=== PATIENT | female | born 1980 | race Caucasian/White ===

== ENCOUNTER 2024-04-30 07:59 | Outpatient (AMB) | payer BC, SELFPAY ==
[2024-04-30 08:01] VITALS: BP 138/78; PULSE 81; O2SAT 98; BMI 51.2
--- NOTE | 2024-04-30 08:01 | MHC.OFFVIS ---
Vital Signs 04/30/24 08:01 Height 5 ft 3 in Weight 288 lb 12.889 oz BMI 51.2 BP 138/78 Blood Pressure Location Lt brachial Position Sitting Pulse 81 Pulse Source Pulse Oximeter Pulse Oximetry (%) 98 Oxygen Delivery Method Room Air Intake Visit Reasons: ARTHRALGIA/CM APT Intake Note: Patient is here to follow up on arthralgia in her elbows. Allergies No Known Allergies [No Known Allergies*] Allergy (Unverified 04/30/24 08:04) PFSH Medical History (Updated 04/30/24 @ 08:37 by Chucky Dwyer MD) Arthralgia Surgical History (Updated 04/30/24 @ 08:07 by Zoe Stephens CMA) LAP-BAND surgery status Family History (Updated 04/30/24 @ 08:08 by Zoe Stephens CMA) Father Lung cancer Brother Diabetes Social History (Updated 04/30/24 @ 08:09 by Zoe Stephens CMA) Alcohol intake: never Cigarettes Per Day: 8 Years Smoked: 25 Physical Exam Vital Signs: Last Vital Signs Pulse 81 04/30/24 08:01 BP 138/78 04/30/24 08:01 Pulse Ox 98 04/30/24 08:01 Oxygen Delivery Method Room Air 04/30/24 08:01 BMI result Body Mass Index 51.2 Office Procedures AMB Joint Injection/Aspiration Joint Injection/Aspiration Secondary Site: right tennis elbow Prep: site was prepped using aseptic technique Injected: 20 mg of, Kenalog, with 0.5 mL of and 1% plain lidocaine Procedure: The patient tolerated the procedure well Coding 94869 - Epicondyle Additional procedure code (CPT) needed (Modifier for bilateral procedure needed) AMB Joint Injection/Aspiration Joint Injection/Aspiration Primary Site: left tennis elbow Prep: site was prepped using aseptic technique Injected: 20 mg of, Kenalog, with 0.5 mL of and 1% plain lidocaine Procedure: The patient tolerated the procedure well Coding 12118 - Epicondyle Additional procedure code (CPT) needed (Modifier for bilateral procedure ) Office Meds Kenalog 40 mg/mL suspension for injection Performing Provider: Chucky Dwyer MD Performing Location: [facility] Administered by: Chucky Dwyer MD on 04/30/24 22:26 Dose Route Admin Location Dispensed Lot Number Expiration Date [place] Attending Psychiatrist 20 mg Tendon Sheath Inj. 1 mL AP [id number] [employer] lidocaine (PF) 10 mg/mL (1 %) injection solution Performing Provider: Chucky Dwyer MD Performing Location: [facility] Administered by: Chucky Dwyer MD on 04/30/24 22:26 Dose Route Admin Location Dispensed Lot Number Expiration Date [facility] Attending Psychiatrist 5 mg Infiltration 2 mL [id number] [facility] Kenalog 40 mg/mL suspension for injection Performing Provider: Chucky Dwyer MD Performing Location: [facility] Administered by: Chucky Dwyer MD on 04/30/24 22:29 Dose Route Admin Location Dispensed Lot Number Expiration Date [facility] Attending Psychiatrist 20 mg Tendon Sheath Inj. 1 mL AP [id number] [employer] lidocaine (PF) 10 mg/mL (1 %) injection solution Performing Provider: Chucky Dwyer MD Performing Location: [facility] Administered by: Chucky Dwyer MD on 04/30/24 22:29 Dose Route Admin Location Dispensed Lot Number Expiration Date [facility] Attending Psychiatrist 5 mg Infiltration 2 mL [id number] [facility] Assessment & Plan Assessment & Plan (1) Lateral epicondylitis: Comment: Bilateral R>L. 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 She has received 6 cortisone injections to treat right lateral epicondylitis and 1 cortisone injection to treat left lateral epicondylitis in total. We discussed considering surgery. Patient is fearful of surgery but is willing to read the information that I will provide her. I will treat her current symptoms with cortisone injection. Code(s): M77.10 - Lateral epicondylitis, unspecified elbow Category: Medical Qualifiers: Laterality: bilateral Qualified Code(s): M77.11 - Lateral epicondylitis, right elbow; M77.12 - Lateral epicondylitis, left elbow Plan: Patient received bilateral lateral epicondyle tendon cortisone injections to treat lateral epicondylitis She will ice affected area as needed Information from [facility] on lateral epicondylitis given to patient Letter to excuse patient from were given to patient Patient is requesting note to support her working no more than 7 hour days at work Return to clinic in 3 months Orders: Orders AMB Joint Injection/Aspiration 04/30/24 M77.11 - Lateral epicondylitis, right elbow, M77.12 - Lateral epicondylitis, left elbow AMB Joint Injection/Aspiration 04/30/24 M77.11 - Lateral epicondylitis, right elbow, M77.12 - Lateral epicondylitis, left elbow Coding Level of Care Code Est Pt Level 3 (83904) Complex EM visit Add On G2211 Diagnoses Lateral epicondylitis of both elbows M77.11; M77.12 Laterality: bilateral CPT Codes Coding - Joint 2: 33696 - Epicondyle ([id number]) Coding - Joint 2: 64532 - Epicondyle ([id number])
== END 2024-04-30 08:35 | disposition home or self-care (01) ==
PROVIDERS: PCP Internal Medicine; Visit Provider Internal Medicine Rheumatology
DX: M77.11 Lateral epicondylitis, right elbow (principal); M77.12 Lateral epicondylitis, left elbow
CPT/HCPCS: 20551

== ENCOUNTER → 2024-04-30 07:59 | Outpatient (BNVA) | payer BC, SELFPAY | PROVIDERS: PCP Internal Medicine; Visit Provider Internal Medicine Rheumatology | DX: M77.11 Lateral epicondylitis, right elbow (principal); M77.12 Lateral epicondylitis, left elbow | CPT/HCPCS: 20551; J2003; J3300 ==

== ENCOUNTER 2024-07-30 12:46 | Outpatient (AMB) | payer BC, SELFPAY ==
--- NOTE | 2024-07-30 12:50 | MHC.OFFVIS ---
Vital Signs 07/30/24 12:52 Height 5 ft 3 in Weight 286 lb 2.56 oz BMI 50.7 BP 130/86 Blood Pressure Location Lt brachial Position Sitting Pulse 103 H Pulse Source Pulse Oximeter Pulse Oximetry (%) 100 Oxygen Delivery Method Room Air Intake Visit Reasons: Follow Up 3mo Intake Note: Patient is here to follow up on arthralgia in her elbows.Pt states that she is also here for Bilateral cortisone inj. in her elbows. Allergies No Known Allergies [No Known Allergies*] Allergy (Verified 07/30/24 12:52) HPI HPI Follow Up 3mo: Details: She has had recurrent pain in elbows right worse than left. 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 [facility] Medical History Arthralgia Surgical History LAP-BAND surgery status Family History Father Lung cancer Brother Diabetes Social History Alcohol intake: never Cigarettes Per Day: 8 Years Smoked: 25 Review of Systems Const All systems reviewed & are unremarkable except as noted in HPI and below Physical Exam Vital Signs: Last Vital Signs Pulse 103 H 07/30/24 12:52 BP 130/86 07/30/24 12:52 Pulse Ox 100 07/30/24 12:52 Oxygen Delivery Method Room Air 07/30/24 12:52 BMI result Body Mass Index 50.7 Const Other: General: Comfortable Skin: No lesions seen MSK: Tender to palpate bilateral lateral epicondyles. Pain at right lateral epicondyle with resisted wrist extension. No swelling of soft tissue localized to lateral or medial epicondyle. Normal range of motion of elbows. Office Procedures AMB Joint Injection/Aspiration Coding 22868 - Epicondyle Procedure code (CPT) selection complete AMB Joint Injection/Aspiration Joint Injection/Aspiration Details: Bilateral lateral epicondyles Prep: site was prepped using aseptic technique Injected into each site: 20 mg of, Kenalog, with 0.5 mL of and 1% plain lidocaine Procedure: The patient tolerated the procedure well. Postprocedure protocol was discussed with patient. Coding 11368 - Epicondyle Procedure code (CPT) selection complete Office Meds lidocaine (PF) 10 mg/mL (1 %) injection solution Performing Provider: Chucky Dwyer MD Performing Location: [facility] Administered by: Chucky Dwyer MD on 07/30/24 21:57 Dose Route Admin Location Dispensed Lot Number Expiration Date [facility]NOTE 3] [employer] 5 mg Infiltration 2 mL [id number] [employer] [employer] Kenalog 40 mg/mL suspension for injection Performing Provider: Chucky Dwyer MD Performing Location: [facility] Administered by: Chucky Dwyer MD on 07/30/24 21:57 Dose Route Admin Location Dispensed Lot Number Expiration Date [facility][NOTE 3] [employer] 20 mg Tendon Sheath Inj. 1 mL AP [id number] [employer] lidocaine (PF) 10 mg/mL (1 %) injection solution Performing Provider: Chucky Dwyer MD Performing Location: [facility] Administered by: Chucky Dwyer MD on 07/30/24 21:57 Dose Route Admin Location Dispensed Lot Number Expiration Date [facility][NOTE 3] [employer] 5 mg Infiltration 2 mL [id number] [employer] Kenalog 40 mg/mL suspension for injection Performing Provider: Chucky Dwyer MD Performing Location: [facility] Administered by: Chucky Dwyer MD on 07/30/24 21:57 Dose Route Admin Location Dispensed Lot Number Expiration Date [facility][NOTE 3] [employer] 20 mg Tendon Sheath Inj. 1 mL AP [id number] [employer] Assessment & Plan Assessment & Plan (1) Lateral epicondylitis: Comment: Bilateral R>L. 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 Patient has changed her job in the company with reduced hours and number of clients. History: She has received 7 cortisone injections to treat right lateral epicondylitis and 2 cortisone injection to treat left lateral epicondylitis in total. I discussed considering surgery last visit 04/30/2024. Code(s): M77.10 - Lateral epicondylitis, unspecified elbow Category: Medical Qualifiers: Laterality: bilateral Qualified Code(s): M77.11 - Lateral epicondylitis, right elbow; M77.12 - Lateral epicondylitis, left elbow Plan: Patient received bilateral cortisone injections to for treatment of bilateral lateral epicondylitis Prescription for elbow support bands given to patient for bilateral elbow support bands Return to clinic in 3 months Orders: Orders AMB Joint Injection/Aspiration Today M77.11 - Lateral epicondylitis, right elbow, M77.12 - Lateral epicondylitis, left elbow AMB Joint Injection/Aspiration Today M77.11 - Lateral epicondylitis, right elbow, M77.12 - Lateral epicondylitis, left elbow Medications: New arm brace As directed Dx: lateral epicondylitis Bilateral elbow support bands 2 ea 0RF Coding Level of Care Code Est Pt Level 4 (51849) Complex EM visit Add On G2211 Diagnoses Lateral epicondylitis of both elbows M77.11; M77.12 Laterality: bilateral CPT Codes Coding - Joint 2: 14514 - Epicondyle ([id number]) Coding - Joint 2: 20897 - Epicondyle ([id number]) Time Spent (min) 20
[2024-07-30 12:52] VITALS: BP 130/86; PULSE 103; O2SAT 100; BMI 50.7
--- OUTSIDE RECORDS SUMMARY | 2024-07-30 15:18 | XMS_ITS | Clinical Summary ---
Author Organization [employer] [facility] Address [address] [place] [address] Care Team Providers Care Air Sealing Technician Name Role Phone Alvaro Soria MD Primary Care Provider [phone] Surgical History Surgery Date Site/Laterality Comments LAPAROSCOPIC GASTRIC BANDING 11/20/2009 PROCEDURE: LAP ADJUSTABLE GASTRIC BAND LEG SURGERY 1994 PROCEDURE: HISTORICAL LEG SURGERY; COMMENT: ORIF Tibia fracture Medical History Medical History Date Comments Hypertension DX:Hypertension Anxiety DX:Anxiety ADD (attention deficit disorder) 03/18/2020 DX:ADD (attention deficit disorder) Allergic rhinitis 03/18/2020 DX:Allergic rh initis RENE (obstructive sleep apnea) 03/18/2020 DX :RENE (obstructive sleep apnea) Non-ischemic cardiomyopathy ([facility]/HCC) 03/18/2020 DX:Non-ischemic cardiomyopathy ([facility]); COMMENT: 2007 EF 35-40% CHF (congestive heart failur e) (CMS/HCC) 03/18/2020 DX:CHF (congestive heart francois lure) ([facility]) PCOS (polycystic ovarian syndrome) 03/18/2020 DX:PCOS (polycystic ovarian syndrome) History of bariatric surgery 03/18/2020 DX: History of bariatric surgery; COMMENT: 2009 Lap band Class 3 severe obesity due t o excess calories with body mass index (BMI) of 50.0 to 59.9 in adult (CMS/HCC) 03/18/2020 DX:Class 3 severe o besity due to excess calories with body mass index (BMI) of 50.0 to 59.9 in adult ([facility]) Hypertension DX:Hypertension Family History Medical History Relation Name Comments Other: COVID-19 Brother 1 Diabetes Diabetes Brother 2 Lung cancer Father Hypertension No Known Problems Mother Relation Name Status Comments Brother 1 Brother 2 Father Alive Mother Alive Social History Tobacco Use Types Packs/Day Years Used Date Smoking Tobacco: Every Day Cigarettes Smokeless Tobacco: Never Alcohol Use Standard Drinks/Week Comments Not Currently 0 (1 standard drink = 0.6 oz pur e alcohol) Comments Unknown Sex and Gender Information Value Date Recorded Sex Assigned at Not on file Legal Sex Female 12:53 PM EST Gender Identity Not on file Sexual Orientation Not on file Obstetrics History Last Filed Vital Signs Vital Sign Reading Time Taken Comments Blood Pressure - - Pulse - - Temperature - - Respiratory Rate - - Oxygen Saturation - - Inhaled Oxygen Concentration - - Weight 138 kg (305 lb) 02/21/2023 9:34 AM EDT Height - - Body Mass Index - - Plan of Treatment Health Maintenance Due Date Last Done Comments Breast Cancer Screening 1981 Hepatitis B Vaccines (1 of 3 - 19+ 3-dose series) 01/06/2000 Pneumococcal Vaccine: Pediatrics (0 to 5 Years) and At-Risk Patients (6 to 64 Years) (1 of 2 - PCV) 01/06/2000 Cervical Cancer Screening: P ap Smear 2002 Cholesterol Screening (Lipid Panel) 04/19/2022 Depression Screening 04/19/2022 HIV Screening 04/19/2022 Hepatitis C Screening 04/19/2022 Social Influencers of Health Screening 04/19/2022 Hypertension/CHF/CAD Annual BMP Blood Test 05/04/2022 COVID-19 Vaccine ( - 2023-2 5 season) 2024 Influenza Vaccine (#1) 2024 02/19/2019 DTaP,Tdap,and Td Vaccines (3 - Td or Tdap) 04/15/2029 04/15/2019, 09/03/2007 MMR Vaccines Aged Out 04/23/2010 No longer eligi ble based on patient's age to complete this topic HIB Vaccines Aged Out No longer eligi ble based on patient's age to complete this topic HPV Vaccines Aged Out No longer eligi ble based on patient's age to complete this topic Hepatitis A Vaccines Aged Out No long er eligible based on patient's age to complete this topic IPV Vaccines Aged Out No longer eligi ble based on patient's age to complete this topic Meningococcal ACWY Vaccine Aged Out N o longer eligible based on patient's age to complete this topic Meningococcal B Vacine Aged Out No lo nger eligible based on patient's age to complete this topic RSV Immunization Patients Under 20 months Aged Out No longer eligible b ased on patient's age to complete this topic Varicella Vaccines Aged Out No longer eligible based on patient's age to complete this topic Care Teams Air Sealing Technician Relationship Specialty Start Date End Date Alvaro Soria MD [address] [place] [id number] PCP - General Internal Medicine 10/27/20
--- OUTSIDE RECORDS SUMMARY | 2024-07-30 15:18 | XMS_ITS | Clinical Summary ---
Author Organization [facility] Address [address] [place] [address] Care Team Providers Care Primary School Teacher Name Role Phone Alvaro Soria MD Primary Care Provider [phone] Allergies No known active allergies Medications Medication Sig Dispensed Refills Start Date End Date Status lisinopril (PRINIVIL,ZESTRIL) tablet 20 mgIndications:Hypertensi on Take 20 mg by mouth daily. 0 Active amphetamine-dextroamphet amine (ADDERALL) 10 MG tabletIndications:Attent ion Deficit Hyperactivity Disorder Take 25 mg by mouth daily. 0 Active Social History Tobacco Use Types Packs/Day Years Used Date Smoking Tobacco: Every Day Cigarettes 0.5 Smokeless Tobacco: Never Tobacco Cessation:Ready to Q uit: No; Counseling Given: No Alcohol Use Standard Drinks/Week Comments Not Currently 0 (1 standard drink = 0.6 oz pur e alcohol) Sex and Gender Information Value Date Recorded Sex Assigned at Female 10/27/2020 11:11 AM EDT Gender Identity Female 10/27/2020 11:11 AM EDT Sexual Orientation Straight 10/27/2020 11 :11 AM EDT Job Start Date Occupation Industry Not on file Not on file Not on file Plan of Treatment Health Maintenance Due Date Last Done Comments Hepatitis B Vaccines (1 of 3 - 3-dose series) 1981 Hepatitis C Screening 1981 COVID-19 Vaccine (#1) 1981 Pneumococcal Vaccine (1 of 2 - PCV) 1987 Depression Screening 1993 Preventative Health Evaluation 1999 Cervical Cancer Screening (P ap Smear) 2002 DTap / Tdap / Td (2 - Td or Tdap) 09/02/2017 008 Influenza Vaccine (#1) 2024 02/19/2019 RSV Ped < 20 months Aged Out No longe r eligible based on patient's age to complete this topic Care Teams Primary School Teacher Relationship Specialty Start Date End Date Alvaro Soria MD [address] [place] [id number] PCP - General Internal Medicine 10/27/20
== END 2024-07-30 13:39 | disposition home or self-care (01) ==
LOC: HO.RHES 12:47
PROVIDERS: PCP Internal Medicine; Visit Provider Internal Medicine Rheumatology
DX: M77.11 Lateral epicondylitis, right elbow (principal); M77.12 Lateral epicondylitis, left elbow
CPT/HCPCS: 20551; 99213

== ENCOUNTER → 2024-07-30 12:46 | Outpatient (BNVA) | payer BC, SELFPAY | PROVIDERS: PCP Internal Medicine; Visit Provider Internal Medicine Rheumatology | DX: M77.11 Lateral epicondylitis, right elbow (principal); M77.12 Lateral epicondylitis, left elbow | CPT/HCPCS: 20551; J2003; J3300 ==

== ENCOUNTER 2024-11-05 12:48 | Outpatient (AMB) | payer BC, SELFPAY ==
[2024-11-05 12:50] VITALS: BP 130/86; PULSE 92; O2SAT 95; BMI 51.8
--- NOTE | 2024-11-05 12:50 | A.OFFVIS_ITS ---
Vital Signs 11/05/24 12:50 Height 5 ft 3 in Weight 292 lb 6 oz BMI 51.8 BP 130/86 Blood Pressure Location Lt brachial Position Sitting Pulse 92 Pulse Source Pulse Oximeter Pulse Oximetry (%) 95 Oxygen Delivery Method Room Air Intake Visit Reasons: 3 Months Intake Note: Patient is here to follow up on arthralgia in her elbows. Allergies No Known Allergies [No Known Allergies*] Allergy (Verified 11/05/24 12:50) HPI HPI 3 Months: Details: In the last 2 weeks she has had increased right elbow pain. Left elbow pain is tolerable. She has been mowing the lawn and doing more housework recently. She takes Aleve 2 tablets daily without benefit. She is wearing elbow support band. She had to take this week off from work due to uncontrolled elbow pain. [facility] Medical History Arthralgia Surgical History LAP-BAND surgery status Family History Father Lung cancer Brother Diabetes Social History Alcohol intake: never Cigarettes Per Day: 8 Years Smoked: 25 Physical Exam Vital Signs: Last Vital Signs Pulse 92 11/05/24 12:50 BP 130/86 11/05/24 12:50 Pulse Ox 95 11/05/24 12:50 Oxygen Delivery Method Room Air 11/05/24 12:50 BMI result Body Mass Index 51.8 Const Other: General: Comfortable Skin: Hypopigmentation localized to lateral epicondyle region of right elbow. MSK: Tender to palpate bilateral lateral epicondyles. Pain at right lateral epicondyle with resisted wrist extension she has. No swelling of soft tissue localized to lateral or medial epicondyle. Normal range of motion of elbows. Results Reviewed Results Reviewed: 09/05 CMP normal. Assessment & Plan Assessment & Plan (1) Lateral epicondylitis: Comment: Bilateral R>L. 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 She has developed hypopigmentation secondary to cortisone steroid as a rare side effect. There is a possibility that hyperpigmentation can recover with time. I discussed the importance of avoiding future cortisone injections to right lateral epicondyle region as she can have further hyperpigmentation and absorption of the fat tissue underneath as a rare side effect. Patient understands. We discussed conservative management. History: She has received 7 cortisone injections to treat right lateral epicondylitis and 2 cortisone injection to treat left lateral epicondylitis in total. I discussed considering surgery last visit 04/30/2024. Code(s): M77.10 - Lateral epicondylitis, unspecified elbow Category: Medical Qualifiers: Laterality: bilateral Qualified Code(s): M77.11 - Lateral epicondylitis, right elbow; M77.12 - Lateral epicondylitis, left elbow Plan: PT ordered Continue to wear elbow support band Stop believe Start celecoxib 200 mg twice a day Return to clinic in 3 months If pain does not improve, she will call office for surgery referral Orders: Orders OT Evaluation and Treatment Today M77.11 - Lateral epicondylitis, right elbow, M77.12 - Lateral epicondylitis, left elbow Medications: New celecoxib Take with food 200 mg PO BID 60 caps 2RF celecoxib Take with food 200 mg PO BID 60 caps 2RF Coding Level of Care Code Est Pt Level 3 (65601) Complex EM visit Add On G2211 Diagnoses Lateral epicondylitis of both elbows M77.11; M77.12 Laterality: bilateral
--- OUTSIDE RECORDS SUMMARY | 2024-11-05 14:30 | XMS_ITS | Clinical Summary ---
Author Organization [facility] Address [address] [place] [address] Care Team Providers Care Accounts Payable Assistant Name Role Phone Alvaro Soria MD Primary Care Provider [phone] Allergies No known active allergies Medications Medication [...] Td or Tdap) 09/02/2017 008 Influenza Vaccine (Season Ended) 2025 02/20/20 19 RSV Ped < 20 months Aged Out No longe r eligible based on patient's age to complete this topic Care Teams Accounts Payable Assistant Relationship Specialty Start Date End Date Alvaro Soria MD [address] [place] [id number] PCP - General Internal Medicine 10/27/20
== END 2024-11-05 13:16 | disposition home or self-care (01) ==
LOC: HO.RHES 12:48
PROVIDERS: PCP Internal Medicine; Visit Provider Internal Medicine Rheumatology
DX: M77.11 Lateral epicondylitis, right elbow (principal); M77.12 Lateral epicondylitis, left elbow
CPT/HCPCS: 99213

== ENCOUNTER → 2024-11-05 12:48 | Outpatient (BNVA) | payer BC, SELFPAY | PROVIDERS: PCP Internal Medicine; Visit Provider Internal Medicine Rheumatology ==

== ENCOUNTER 2025-02-04 12:39 | Outpatient (AMB) | payer BC, SELFPAY ==
[2025-02-04 12:46] VITALS: BP 130/86; PULSE 108; O2SAT 100; BMI 51.4
--- NOTE | 2025-02-04 12:46 | A.OFFVIS_ITS ---
Vital Signs 02/04/25 12:46 Height 5 ft 3 in Weight 290 lb 2.053 oz BMI 51.4 BP 130/86 Blood Pressure Location Lt brachial Position Sitting Pulse 108 H Pulse Source Pulse Oximeter Pulse Oximetry (%) 100 Oxygen Delivery Method Room Air Intake Visit Reasons: 3 Months Intake Note: Patient is here to follow up on arthralgia in her elbows. Accompanied by: Self / Same As Patient Allergies No Known Allergies (No Known Allergies*) Allergy (Verified 02/04/25 12:47) HPI HPI 3 Months: Details: She is using Celebrex 200 mg daily since running low on the prescription. Pain is 8/10 in both elbows. Left elbow pain has been increasing since she is relying on it more. When she has 3 consecutive days of, pain is more manageable especially with Celebrex on board. [facility] Medical History Arthralgia Surgical History LAP-BAND surgery status Family History Father Lung cancer Brother Diabetes Social History Alcohol intake: never Cigarettes Per Day: 8 Years Smoked: 25 Physical Exam Vital Signs: Last Vital Signs Pulse 108 H 02/04/25 12:46 BP 130/86 02/04/25 12:46 Pulse Ox 100 02/04/25 12:46 Oxygen Delivery Method Room Air 02/04/25 12:46 BMI result Body Mass Index 51.4 Const Other: General: Comfortable Skin: Hypopigmentation localized to lateral epicondyle region of right elbow has resolved. MSK: Tender to palpate bilateral lateral epicondyles. Pain at left lateral epicondyle with resisted wrist extension she has. No swelling of soft tissue localized to lateral or medial epicondyle. Normal range of motion of elbows. Office Procedures AMB Joint Injection/Aspiration Joint Injection/Aspiration Details: Left lateral epicondyle Prep: site was prepped using aseptic technique Injected: 20 mg of, Kenalog, with 0.5 mL of and 1% plain lidocaine Procedure: Informed verbal consent was obtained. The patient tolerated the procedure well. Postprocedure protocol was discussed with patient. Coding 78545 - Medium joint Procedure code (CPT) selection complete Office Meds lidocaine (PF) 10 mg/mL (1 %) injection solution Performing Provider: Chucky Dwyer MD [place] [facility] [place] [facility] Administered by: Chucky Dwyer MD on 02/04/25 13:47 Dose Route Admin Location Dispensed Lot Number Expiration Date [facility] Bander Operator 10 mg Infiltration 2 mL [id number] FRESEN [employer] KABI Total Dispensed Waste 2 mL 50 % Kenalog 40 mg/mL suspension for injection Performing Provider: Chucky Dwyer MD [place] [facility] [place] [facility] Administered by: Chucky Dwyer MD on 02/04/25 13:47 Dose Route Admin Location Dispensed Lot Number Expiration Date [facility] Bander Operator 20 mg Tendon Sheath Inj. 1 mL HI [id number] [employer] Total Dispensed Waste 1 mL 50 % Assessment & Plan Assessment & Plan (1) Lateral epicondylitis: Comment: Bilateral. 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 She developed hyperpigmentation secondary to cortisone side effect after last cortisone injection to right lateral epicondyle, which has now resolved. We discussed avoiding right elbow cortisone injection due to rare side effect that she experience. She would like to have cortisone injection to treat left lateral epicondylitis. She did not have time to participate in physical therapy. Celebrex reduces pain. Discussed long-term side effects of chronic NSAID use. She is not ready for surgery. History: She has received 7 cortisone injections to treat right lateral epicondylitis and 2 cortisone injection to treat left lateral epicondylitis in total. I discussed considering surgery last visit 04/30/2024. Code(s): M77.10 - Lateral epicondylitis, unspecified elbow Category: Medical Qualifiers: Laterality: bilateral Qualified Code(s): M77.11 - Lateral epicondylitis, right elbow; M77.12 - Lateral epicondylitis, left elbow Plan: Patient received cortisone injection to treat left lateral epicondylitis Continue to wear elbow support band Continue celecoxib 200 mg twice a day. She will try to reduce Celebrex to 200 mg daily when pain is better managed Ice elbows twice a day Return to clinic in 3 months If pain does not improve, I will refer her to PT Letter written for patient's work to accommodate her to have 3 consecutive days often a week Orders: Orders Alanine Aminotransferase Today Z79.899 - Other terminal operations supervisor (current) drug therapy AMB Joint Injection/Aspiration Today M77.11 - Lateral epicondylitis, right elbow, M77.12 - Lateral epicondylitis, left elbow Creatinine Today Z79.899 - Other snf (current) drug therapy Aspartate Amino Transferase Today Z79.899 - Other snf (current) drug therapy Medications: Refilled celecoxib Take with food 200 mg PO BID 60 caps 2RF Coding Level of Care Code Est Pt Level 3 (85314) Complex EM visit Add On G2211 Diagnoses Lateral epicondylitis of both elbows M77.11; M77.12 Laterality: bilateral CPT Codes Coding - 46488 Medium joint: 18072 - Medium joint ([id number])
--- OUTSIDE RECORDS SUMMARY | 2025-02-04 16:40 | XMS_ITS | Clinical Summary ---
Author Organization [facility] Address [address] [place] [address] Care Team Providers Care Prn Physical Therapist Name Role Phone Alvaro Soria MD Primary Care Provider [phone] Surgical History Surgery Date Site/Laterality Comments LAPAROSCOPIC GASTRIC BANDING 11/20/2009 PROCEDURE: LAP ADJUSTABLE GASTRIC BAND LEG SURGERY 1994 PROCEDURE: HISTORICAL LEG SURGERY; COMMENT: ORIF Tibia fracture Medical History Medical History Date Comments Hypertension DX:Hypertension Anxiety DX:Anxiety ADD (attention deficit disorder) 03/18/2020 DX:ADD (attention deficit disorder) Allergic rhinitis 03/18/2020 DX:Allergic rh initis RENE (obstructive sleep apnea) 03/18/2020 DX :RENE (obstructive sleep apnea) Non-ischemic cardiomyopathy ([facility] V24, [facility] V28) 03/18/2020 DX:Non-ischemic cardiomyopat hy ([facility]); COMMENT: 2007 EF 35-40% CHF (congestive heart failur e) (CMS/[facility] V24, [facility] V28) 03/18/2020 DX:CHF (congestive heart fa ilure) ([facility]) PCOS (polycystic ovarian syndrome) 03/18/2020 DX:PCOS (polycystic ovarian syndrome) History of bariatric surgery 03/18/2020 DX: History of bariatric surgery; COMMENT: 2009 Lap band Class 3 severe obesity due t o excess calories with body mass index (BMI) of 50.0 to 59.9 in adult (CMS/[facility] V24, [facility] V28) 03/18/2020 DX:Class 3 severe obesity du e to excess calories with body mass index (BMI) of 50.0 to 59.9 in adult ([facility]) Hypertension DX:Hypertension Family History Medical History Relation [...] 5 Years) and At-Risk Patients (6 to 49 Years) (1 of 2 - PCV) 01/06/2000 Cervical Cancer Screening: P ap Smear 2002 Cholesterol Screening (Lipid Panel) 04/19/2022 HIV Screening 04/19/2022 Hepatitis C Screening 04/19/2022 Social Influencers of Health Screening 04/19/2022 Hypertension/CHF/CAD Annual BMP Blood Test 05/04/2022 Depression Screening 05/22/2024 COVID-19 Vaccine (2023-2 5 season) 2025 Influenza Vaccine (#1) 2025 02/19/2019 DTaP,Tdap,and Td Vaccines (3 - Td [...] age to complete this topic Meningococcal B Vaccine Aged Out No l onger eligible based on patient's age to complete this topic RSV Immunization Patients Under 20 months Aged Out No longer eligible b ased on patient's age to complete this topic Varicella Vaccines Aged Out No longer eligible based on patient's age to complete this topic Care Teams Prn Physical Therapist Relationship Specialty Start Date End Date Alvaro Soria MD [address] [place] [id number] PCP - General Internal Medicine 10/27/20
== END 2025-02-04 13:11 | disposition home or self-care (01) ==
LOC: HO.RHES 12:40
PROVIDERS: PCP Internal Medicine; Visit Provider Internal Medicine Rheumatology
DX: M77.11 Lateral epicondylitis, right elbow (principal); M77.12 Lateral epicondylitis, left elbow
CPT/HCPCS: 20605; 99213

== ENCOUNTER → 2025-02-04 12:39 | Outpatient (BNVA) | payer BC, SELFPAY | PROVIDERS: PCP Internal Medicine; Visit Provider Internal Medicine Rheumatology | DX: M77.12 Lateral epicondylitis, left elbow (principal) | CPT/HCPCS: 20605; J2003; J3301 ==

== ENCOUNTER 2025-05-05 12:32 | Outpatient (REF) | payer BC, SELFPAY ==
[2025-05-05 16:46] LABS: Alanine Aminotransferase 24 U/L (0-31); Aspartate Amino Transferase 24 U/L (5-31); Estimated Glomerular Filt Rate > 60
--- OUTSIDE RECORDS SUMMARY | 2025-05-05 18:03 | XMS_ITS | Clinical Summary ---
Author Organization [facility] Prior to 10/19/[address] [place] [address] Care Team Providers Care Diesel Engine Operator Name Role Phone Alvaro Soria MD Primary Care Provider [phone] Allergies No known active allergies Medications Medication [...] or Tdap) 09/02/2017 008 Influenza Vaccine (#1) 2025 02/19/2019 RSV Ped < 20 months Aged Out No longe r eligible based on patient's age to complete this topic Care Teams Diesel Engine Operator Relationship Specialty Start Date End Date Alvaro Soria MD [address] [place] [id number] PCP - General Internal Medicine 10/27/20
--- OUTSIDE RECORDS SUMMARY | 2025-05-05 18:04 | XMS_ITS | Clinical Summary ---
Author Organization [facility] Address [address] [place] [address] Care Team Providers Care Sales Expert Name Role Phone Alvaro Soria MD Primary Care Provider [phone] Surgical History Surgery Date Site/Laterality Comments LAPAROSCOPIC [...] :RENE (obstructive sleep apnea) Non-ischemic cardiomyopathy ([facility] V24, [facility] V28) 03/18/2020 DX:Non-ischemic cardiomyopat hy ([facility]); COMMENT: 2007 EF 35-40% CHF (congestive heart failur e) ([facility] V24, [facility] V28) 03/18/2020 DX:CHF (congestive heart fa ilure) ([facility]) PCOS (polycystic ovarian syndrome) 03/18/2020 DX:PCOS (polycystic ovarian syndrome) History of bariatric surgery 03/18/2020 DX: History of bariatric surgery; COMMENT: 2009 Lap band Class 3 severe obesity due t o excess calories with body mass index (BMI) of 50.0 to 59.9 in adult ([facility] V24, [facility] V28) 03/18/2020 DX:Class 3 severe obesity du e to excess calories with body mass index (BMI) of 50.0 to 59.9 in adult ([facility]) Hypertension DX:Hypertension Family History Medical History Relation [...] on file Sexual Orientation Not on file Last Filed Vital Signs Vital Sign Reading [...] Cervical Cancer Screening: P ap Smear 2002 HPV Vaccines (1 - 3-dose SCD M series) 01/06/2008 Cholesterol Screening (Lipid Panel) 04/19/2022 HIV Screening 04/19/2022 Hepatitis C Screening 04/19/2022 Social Influencers of Health Screening 04/19/2022 Hypertension/CHF/CAD Annual BMP Blood Test 05/04/2022 Depression Screening 05/22/2024 COVID-19 Vaccine ( - 2024-2 6 season) 2025 Influenza Vaccine (#1) 2025 02/19/2019 DTaP,Tdap,and Td Vaccines (3 - Td or Tdap) 04/15/2029 04/15/2019, 09/03/2007 RSV Immunization Adult Patients (1 - 1-dose 75+ series) 01/06/2056 MMR Vaccines Aged Out 04/23/2010 No longer [...] age to complete this topic Care Teams Sales Expert Relationship Specialty Start Date End Date Alvaro Soria MD [address] [place] [address] PCP - General Internal Medicine 10/27/20
== END 2025-05-05 12:33 | disposition home or self-care (01) ==
LOC: HO.HMGCLDS 12:32
PROVIDERS: PCP Internal Medicine; Visit Provider Internal Medicine Rheumatology
DX: Z79.899 Other long term (current) drug therapy (principal)
CPT/HCPCS: 36415; 82565; 84450; 84460

== ENCOUNTER 2025-05-20 12:53 | Outpatient (AMB) | payer BC, SELFPAY ==
[2025-05-20 12:57] VITALS: BP 150/100; PULSE 102; O2SAT 98; BMI 52.2
--- NOTE | 2025-05-20 12:57 | MHC.OFFVIS ---
Vital Signs 05/20/25 12:57 Height 5 ft 3 in Weight 294 lb 7 oz BMI 52.2 BP 150/100 H Blood Pressure Location Lt brachial Position Sitting Pulse 102 H Pulse Source Pulse Oximeter Pulse Oximetry (%) 98 Oxygen Delivery Method Room Air Intake Visit Reasons: 3months Intake Note: Patient is here to follow up on arthralgia in her elbows. Accompanied by: Self / Same As Patient Allergies No Known Allergies (No Known Allergies*) Allergy (Verified 05/20/25 12:57) Medication List - Last Reconciled 05/20/25 by Chucky Dwyer MD arm brace As directed Dx: lateral epicondylitis Bilateral elbow support bands celecoxib 200 mg PO BID 90 days clonazepam 1 mg PO BID valsartan-hydrochlorothiazide 80-12.5 mg 1 tab PO DAILY HPI HPI 3months: Details: Pain return left lateral epicondyle after about 2-1/2 months. Celebrex helps take the edge off. She takes Celebrex once a day when she is not working. She takes Celebrex twice a day on work days. She avoids Tylenol and any other NSAIDs when she takes Celebrex. She has reduced her schedule at work, which has helped. [facility] Medical History Arthralgia Surgical History LAP-BAND surgery status Family History Father Lung cancer Brother Diabetes Social History Alcohol intake: never Cigarettes Per Day: 8 Years Smoked: 25 Physical Exam Vital Signs: Last Vital Signs Pulse 102 H 05/20/25 12:57 BP 150/100 H 05/20/25 12:57 Pulse Ox 98 05/20/25 12:57 Oxygen Delivery Method Room Air 05/20/25 12:57 BMI result Body Mass Index 52.2 Const Other: General: Comfortable Skin: No lesions seen. MSK: Tender to palpate bilateral lateral epicondyles. Soft tissue swelling right lateral epicondyle. Pain of bilateral lateral epicondyles with resisted wrist extension. Normal range of motion of elbows. Office Procedures AMB Joint Injection/Aspiration Joint Injection/Aspiration Details: Left lateral epicondyle Prep: site was prepped using aseptic technique Injected: 20 mg of, Kenalog, with 0.5 mL of and 1% plain lidocaine Procedure: Informed verbal consent was obtained. The patient tolerated the procedure well. Postprocedure protocol was discussed with patient. Coding 85310 - Epicondyle Procedure code (CPT) selection complete Office Meds lidocaine (PF) 10 mg/mL (1 %) injection solution Performing Provider: Chucky Dwyer MD [place] [facility] [place] [facility] Administered by: Chucky Dwyer MD on 05/20/25 13:19 Dose Route Admin Location Dispensed Lot Number Expiration Date [facility] Pipe Line Maintenance Supervisor 0.5 mL Infiltration left lateral epicondyle 2 mL [id number] 07/19/28 49040-984-82 FRESENIUS KABI Total Dispensed Waste 2 mL 75 % Kenalog 40 mg/mL suspension for injection Performing Provider: Chucky Dwyer MD Performing [place] [facility] [place] [facility] Administered by: Chucky Dwyer MD on 05/20/25 13:19 Dose Route Admin Location Dispensed Lot Number Expiration Date [facility] Pipe Line Maintenance Supervisor 20 mg Tendon Sheath Inj. left lateral epicondyle 1 mL [id number] 11/18/26 [address]-2 [employer] Total Dispensed Waste 1 mL 50 % Assessment & Plan Assessment & Plan (1) Lateral epicondylitis: Comment: Bilateral. 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 Cortisone injection is lasting 2-1/2 months. She would like to have cortisone injection to treat left lateral epicondylitis. In the past she did not have time for PT. She agreed to physical therapy. Celebrex reduces pain. She will consider surgical consultation. History: She has received 9 cortisone injections to treat right lateral epicondylitis and 4 cortisone injection to treat left lateral epicondylitis in total. I discussed considering surgery last visit 04/30/2024. She developed hyperpigmentation secondary to cortisone side effect after last cortisone injection 07/2024 to right lateral epicondyle, which resolved. Code(s): M77.10 - Lateral epicondylitis, unspecified elbow Category: Medical Qualifiers: Laterality: bilateral Qualified Code(s): M77.11 - Lateral epicondylitis, right elbow; M77.12 - Lateral epicondylitis, left elbow Plan: Patient received cortisone injection to treat left lateral epicondylitis Continue to wear elbow support band Continue celecoxib 200 mg twice a day. Labs ok 04/2025 for drug monitoring on chronic NSAID Ice elbows twice a day PT ordered Hand surgery referral Return to clinic in 3 months Excuse letter written for patient's work to have her off until tomorrow Orders: Orders AMB Joint Injection/Aspiration Today M77.11 - Lateral epicondylitis, right elbow, M77.12 - Lateral epicondylitis, left elbow Referrals Hand Surgery Referral M77.11 - Lateral epicondylitis, right elbow, M77.12 - Lateral epicondylitis, left elbow Coding Level of Care Code Est Pt Level 3 (33085) Add On Problem Visit Only Diagnoses Lateral epicondylitis of both elbows M77.11; M77.12 Laterality: bilateral CPT Codes Coding - Joint 2: 65182 - Epicondyle ([id number])
--- OUTSIDE RECORDS SUMMARY | 2025-05-20 16:44 | XMS_ITS | Clinical Summary ---
Author Organization [facility] Prior to 10/19/[address] [place] [address] Care Team Providers Care Hazmat Truck Driver Name Role Phone Alvaro Soria MD Primary Care Provider [phone] Allergies No known active allergies Medications Medication [...] age to complete this topic Care Teams Hazmat Truck Driver Relationship Specialty Start Date End Date Alvaro Soria MD [address] [place] [id number] PCP - General Internal Medicine 10/27/20
--- OUTSIDE RECORDS SUMMARY | 2025-05-20 16:44 | XMS_ITS | Clinical Summary ---
Author Organization [facility] Address [address] [place] [address] Care Team Providers Care Cable Way Operator Name Role Phone Alvaro Soria MD Primary Care Provider [phone] Surgical History Surgery Date Site/Laterality Comments LAPAROSCOPIC GASTRIC BANDING 11/20/2009 PROCEDURE: LAP ADJUSTABLE GASTRIC BAND LEG SURGERY 1994 PROCEDURE: HISTORICAL LEG SURGERY; COMMENT: ORIF Tibia fracture Medical History Medical History Date Comments Hypertension DX:Hypertension Anxiety DX:Anxiety ADD (attention deficit disorder) 03/18/2020 DX:ADD (attention deficit disorder) Allergic rhinitis 03/18/2020 DX:Allergic rh initis RENE (obstructive sleep apnea) 03/18/2020 DX :RENE (obstructive sleep apnea) Non-ischemic cardiomyopathy ([facility] V24, [facility] V28) 03/18/2020 DX:Non-ischemic cardiomyopat hy ([facility]); COMMENT: 2007 EF 35-40% CHF (congestive heart failur e) ([facility] V24, [facility] V28) 03/18/2020 DX:CHF (congestive heart fa ilure) ([facility]) PCOS (polycystic ovarian syndrome) 03/18/2020 DX:PCOS (polycystic ovarian syndrome) History of bariatric surgery 03/18/2020 DX: History of bariatric surgery; COMMENT: 2009 Lap band Class 3 severe obesity due t o excess calories with body mass index (BMI) of 50.0 to 59.9 in adult ([facility] V24, [facility] V28) 03/18/2020 DX:Class 3 severe obesity du e to excess calories with body mass index (BMI) of 50.0 to 59.9 in adult ([facility]) Hypertension DX:Hypertension Family History Medical History [...] age to complete this topic Care Teams Cable Way Operator Relationship Specialty Start Date End Date Alvaro Soria MD [address] [place] [address] PCP - General Internal Medicine 10/27/20
== END 2025-05-20 13:26 | disposition home or self-care (01) ==
LOC: HO.RHES 12:53
PROVIDERS: PCP Internal Medicine; Visit Provider Internal Medicine Rheumatology
DX: M77.11 Lateral epicondylitis, right elbow (principal); M77.12 Lateral epicondylitis, left elbow
CPT/HCPCS: 20550; 99213

== ENCOUNTER → 2025-05-20 12:53 | Outpatient (BNVA) | payer BC, SELFPAY | PROVIDERS: PCP Internal Medicine; Visit Provider Internal Medicine Rheumatology | DX: M17.11 Unilateral primary osteoarthritis, right knee (principal); M17.12 Unilateral primary osteoarthritis, left knee | CPT/HCPCS: 20550; J2003; J3301 ==